=== PATIENT | female | born 1955 | race Caucasian/White ===

== ENCOUNTER → 2018-10-13 | Outpatient (CLI) | payer MEDICARE ==
[~2018-10-13] MED LIST: CAR200 PO; CARB-91 PO; DIVA500T97 PO; DIVA500T98 PO
== END ==
LOC: AMB 15:45
PROVIDERS: ATTEND Nurse Practitioner
DX: R42 Dizziness and giddiness (principal); H53.9 Unspecified visual disturbance; Z91.81 History of falling
CPT/HCPCS: A0425; A0429